=== PATIENT | female | born 1985 | race Caucasian/White ===

== ENCOUNTER 2021-05-30 07:42 | Outpatient (REF) | payer OTHER, SELFPAY ==
[2021-05-30 08:49] LABS: COVID-19 Test Negative (Negative)
== END 2021-05-30 07:43 | disposition home or self-care (01) ==
LOC: HO.LAB 07:42
PROVIDERS: Visit Provider Internal Medicine
DX: Z20.822 Contact with and (suspected) exposure to COVID-19 (principal)
CPT/HCPCS: 87635; C9803

== ENCOUNTER → 2023-02-20 11:26 | Outpatient (BNVA) | payer OTHER, SELFPAY | PROVIDERS: PCP Internal Medicine; Visit Provider Physician Assistant | DX: S39.012A Strain of muscle, fascia and tendon of lower back, initial encounter (principal); S39.82XA Other specified injuries of lower back, initial encounter; X58.XXXA Exposure to other specified factors, initial encounter; Z99.3 Dependence on wheelchair | CPT/HCPCS: 99202 ==

== ENCOUNTER → 2023-02-27 10:26 | Outpatient (BNVA) | payer OTHER, SELFPAY | PROVIDERS: PCP Internal Medicine; Visit Provider Internal Medicine | DX: S39.012D Strain of muscle, fascia and tendon of lower back, subsequent encounter (principal); X58.XXXD Exposure to other specified factors, subsequent encounter | CPT/HCPCS: 99213 ==

== ENCOUNTER → 2023-03-18 10:17 | Outpatient (BNVA) | payer OTHER, SELFPAY | PROVIDERS: PCP Internal Medicine; Visit Provider Internal Medicine | DX: S39.012D Strain of muscle, fascia and tendon of lower back, subsequent encounter (principal); X58.XXXD Exposure to other specified factors, subsequent encounter; M94.0 Chondrocostal junction syndrome [Tietze] | CPT/HCPCS: 99213 ==

== ENCOUNTER → 2023-03-27 09:22 | Outpatient (BNVA) | payer OTHER, SELFPAY | PROVIDERS: PCP Internal Medicine; Visit Provider Internal Medicine | DX: S39.012D Strain of muscle, fascia and tendon of lower back, subsequent encounter (principal); S29.012D Strain of muscle and tendon of back wall of thorax, subsequent encounter; X58.XXXD Exposure to other specified factors, subsequent encounter | CPT/HCPCS: 99213 ==

== ENCOUNTER → 2023-04-06 08:46 | Outpatient (BNVA) | payer OTHER, SELFPAY | PROVIDERS: PCP Internal Medicine; Visit Provider Internal Medicine | DX: S39.012D Strain of muscle, fascia and tendon of lower back, subsequent encounter (principal); X58.XXXD Exposure to other specified factors, subsequent encounter | CPT/HCPCS: 99213 ==

== ENCOUNTER → 2023-04-15 10:11 | Outpatient (BNVA) | payer OTHER, SELFPAY | PROVIDERS: PCP Internal Medicine; Visit Provider Internal Medicine | DX: M54.9 Dorsalgia, unspecified (principal) | CPT/HCPCS: 99214 ==

== ENCOUNTER 2023-04-30 11:00 | Outpatient (RCR) | payer OTHER, SELFPAY ==
--- NOTE | 2023-03-30 09:58 | MHC.PT.EP ---
[facility] [place] Office [place] Office [place] Office [address] [phone] F: [phone] F: [phone] F: [phone] F: [phone] Physical Therapy Plan of Care Date of Evaluation: 03/30/23 Date of Surgery: Diagnosis: lumbar strain Assessment: 37 y/o female referred to PT from work connection with lumbar strain. 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 Job duties include pushing w/c, maneuvering desks to make space for students, lifting students, and bathroom assist. Reports on 02/09/23 she was pushing a student in a w/c and simultaneously trying to push open heavy doors, when she felt R-sided low back and could not stand up straight. States she needs to sit leaning to the left and has pain/ difficulty with bending forward, lifting, walking longer distance > 15min, job duties and hobbies (hiking, gym regime, and taking care of children). Examination shows decreased lumbar AROM, decreased core/hip strength, decreased R hip ER ROM, pain, hypomobile L4-5 PA lumbar mobility, altered SI mechanics, and pain with functional mobility. Recommend PT 2x/week for 5 weeks to address impairments, implement HEP, and optimize functional mobiltiy. Frequency and Duration: The patient will be seen 2x/week for 5 weeks Short Term Goals: 3 weeks Compliant with HEP Will be able to sit with neutral posture and equal WB through sit bones with pain < 3/10 Alf Goals: 5 weeks I with HEP and self management of sx She will demonstrate improved R LE strength to 4/5 throughout to faciliate lifting She will be able to push/ pull > 30# on speed miguelito with pain < 3/10 and proper mechanics Treatment Plan: Modalities to reduce pain, spasms and effusion. Manual therapy to restore motion and function. Therapeutic exercise to improve strength and flexibility. Neuromuscular re-education for posture and balance. Therapeutic activities to return to functional activities of daily living. Electronically signed by: Ruthann Hathaway PT Please sign and return to therapist. Thank you for your referral.
--- NOTE | 2023-07-06 07:13 | MHC.PT.DC ---
[facility] [place] Office [place] Office [place] Office [address] Felipe [address] [phone] F: [phone] F: [phone] F: [phone] F: [phone] Physical Therapy Discharge Report Diagnosis: lumbar strain Date of Surgery: Date of Evaluation: 03/30/23 Date of Discharge: 07/06/23 Treatments to Date: 5 Cancellations to Date: 4 No Shows to Date: 2 Discharge Status: Visit Non-compliance Discharge Summary: Pt did not f/u with further visits as well as having poor compliance with scheduling policy. At this time, will close pt chart as it has been greater than 30 days since last attended visit. At time of last attended visit, pt was continuing to have spasms in low back. Electronically signed by: Ruthann Hathaway PT Please sign and return to therapist. Thank you for your referral.
== END 2023-07-06 07:14 | disposition home or self-care (01) ==
LOC: HO.PTCHIC 11:00
PROVIDERS: PCP Internal Medicine; Visit Provider Internal Medicine
DX: S39.012D Strain of muscle, fascia and tendon of lower back, subsequent encounter (principal)
CPT/HCPCS: 97110; 97140; 97161

== ENCOUNTER → 2023-05-01 09:34 | Outpatient (BNVA) | payer OTHER, SELFPAY | PROVIDERS: PCP Internal Medicine; Visit Provider Internal Medicine | DX: M54.50 Low back pain, unspecified (principal) | CPT/HCPCS: 99213 ==

== ENCOUNTER → 2023-05-22 08:41 | Outpatient (BNVA) | payer OTHER, SELFPAY | PROVIDERS: PCP Internal Medicine; Visit Provider Internal Medicine | DX: S39.012D Strain of muscle, fascia and tendon of lower back, subsequent encounter (principal); X58.XXXD Exposure to other specified factors, subsequent encounter | CPT/HCPCS: 99213 ==

== ENCOUNTER → 2023-08-05 09:53 | Outpatient (BNVA) | payer OTHER, SELFPAY | PROVIDERS: PCP Internal Medicine; Visit Provider Internal Medicine | DX: S39.012D Strain of muscle, fascia and tendon of lower back, subsequent encounter (principal); X58.XXXD Exposure to other specified factors, subsequent encounter | CPT/HCPCS: 99213 ==